=== PATIENT | female | born 1995 | race Two or more races ===

== ENCOUNTER 2017-11-24 01:24 | Emergency (ER) | payer OTHER ==
[2017-11-24] MEDS ORDERED: ACETAMINOPHEN 325 MG TABLET PO ONE (01:40)
[2017-11-24] MEDS ORDERED: IBUPROFEN 600 MG TABLET PO ONE (01:40)
[2017-11-24 01:44] VITALS: BP 109/67
--- NOTE | 2017-11-24 02:06 | ER Document Report ---
ED General - General Chief Complaint: Facial Injury Stated Complaint: FACIAL INJURY/SWELLING Time Seen by Provider: 11/24/17 01:39 Notes: Patient is a 22-year-old female without past medical history who presents with left-sided jaw pain. She describes it as a mild, constant, throbbing pain that has worsened since onset. She states that a soccer ball hit her in the left side of her jaw yesterday while she was watching again. She notes that initially she had minimal to no pain to the area and went to bed without hardly any pain. She states however when she woke up she noticed a small amount of swelling to the left side of her face and has had some mild increase in pain from the day today. She has applied ice with minimal improvement of the pain. Nothing worsens the pain. She notes that she is able to chew, swallow and breathe without any difficulty. She has not seen her primary care doctor regarding today's concerns. - Related Data Allergies/Adverse Reactions: No Known Allergies Allergy (Unverified 11/24/17 01:28) Past Medical History - General Information source: Patient - Social History Smoking Status: Never Smoker Frequency of alcohol use: None Drug Abuse: None Lives with: Spouse/Significant other Family History: Reviewed & Not Pertinent Review of Systems - Review of Systems Notes: Constitutional: Negative for fever. Eyes: Negative for visual changes. ENT: Positive for facial injury Cardiovascular: Negative for chest injury. Respiratory: Negative for shortness of breath. Gastrointestinal: Negative for abdominal injury. Genitourinary: Negative for genital injury Musculoskeletal: Negative for back injury. Skin: Negative for laceration/abrasions. Neurological: Negative for head injury. Physical Exam - Vital signs Vitals: Temp Pulse Resp BP Pulse Ox 98.1 F 62 18 109/67 99 11/24/17 01:28 11/24/17 01:28 11/24/17 01:28 11/24/17 01:28 11/24/17 01:28 Interpretation: Normal Notes: PHYSICAL EXAMINATION: GENERAL: Well-appearing, well-nourished and in no acute distress. HEAD: Atraumatic, normocephalic. EYES: Pupils equal round and reactive to light, extraocular movements intact, sclera anicteric, conjunctiva are normal. ENT: TMs well aligned bilateral. Teeth align normally. There is no apparent swelling or deformity to the mandible. Patient is talking comfortably. Nares patent, oropharynx clear without exudates. Moist mucous membranes. NECK: Normal range of motion, supple without lymphadenopathy LUNGS: Breath sounds clear to auscultation bilaterally and equal. No wheezes rales or rhonchi. HEART: Regular rate and rhythm without murmurs ABDOMEN: Soft, nontender, normoactive bowel sounds. No guarding, no rebound. No masses appreciated. EXTREMITIES: Normal range of motion, no pitting or edema. No cyanosis. NEUROLOGICAL: No focal neurological deficits. Moves all extremities spontaneously and on command. PSYCH: Normal mood, normal affect. SKIN: Warm, Dry, normal turgor, no rashes or lesions noted. Course - Re-evaluation Re-evalutation: 11/24/17 01:53 Patient presents with mild left sided jaw pain although there is no appreciable swelling on examination. She was struck in the face of the soccer ball yesterday and states that initially she had minimal pain but she has had some increasing pain and mild swelling to the area since that time. She is talking freely, no trismus, no deformity, no click or palpable deformity of the TMJ. Her teeth align normally. No buccal mucosal injury. Clear breath sounds bilaterally. No stridor or evidence of airway occlusion. Mandible x-rays were offered and declined. At this time will discharge with return precautions and follow-up recommendations. Verbal discharge instructions given a the bedside and opportunity for questions given. Medication warnings reviewed. Patient is in agreement with this plan and has verbalized understanding of return precautions and the need for primary care follow-up in the next 24-72 hours. - Vital Signs Vital signs: Temp Pulse Resp BP Pulse Ox 98.1 F 62 18 109/67 99 11/24/17 01:28 11/24/17 01:28 11/24/17 01:28 11/24/17 01:28 11/24/17 01:28 Discharge - Discharge Clinical Impression: Injury of jaw Qualifiers: Encounter type: initial encounter Qualified Code(s): S09.93XA - Unspecified injury of face, initial encounter Condition: Good Disposition: HOME, SELF-CARE Additional Instructions: Please return if you have worsening her pain, significant swelling to the area, become unable to open her mouth, or have any other symptoms that are worrisome to you. For your pain: Take ibuprofen 600 mg and acetaminophen 1000 mg every 6 hours together as needed for pain.
== END 2017-11-24 01:53 | disposition home or self-care (01) ==
LOC: ER 01:24
DX: S09.93XA Unspecified injury of face, initial encounter (principal); W21.02XA Struck by soccer ball, initial encounter; Y93.82 Activity, spectator at an event
CPT/HCPCS: 99283